=== PATIENT | male | born 1995 | race Hispanic/Latino ===

== ENCOUNTER 2020-09-04 08:11 | Emergency (ER) | payer OTHER, SELFPAY ==
[2020-09-04] MEDS ORDERED: HYDROcodone/Acetaminophen 10/325 mg Tablet ONE (08:53)
[2020-09-04] MEDS ORDERED: Ibuprofen 800 MG TAB ONE (08:54)
== END 2020-09-04 09:37 | disposition home or self-care (01) ==
LOC: ERS 08:11
DX: S62.336A Displaced fracture of neck of fifth metacarpal bone, right hand, initial encounter for closed fracture (principal); F17.210 Nicotine dependence, cigarettes, uncomplicated; V89.2XXA Person injured in unspecified motor-vehicle accident, traffic, initial encounter